=== PATIENT | female | born 1970 | race Caucasian/White ===

== ENCOUNTER 2022-01-06 06:59 | Emergency (ER) | payer BC ==
[2022-01-06] MEDS ORDERED: Ondansetron 4 MG/2 ML SDV IVPUSH ONE (08:09)
[2022-01-06] MEDS ORDERED: Sodium Chloride 0.9% 1,000 ML IV ONE (08:09)
[2022-01-06] MEDS ORDERED: Alum Hydroxide/Mag Hydroxide 15 ML, Lidocaine 2% 15 ML PO ONE ×2 (08:27)
[2022-01-06 08:37] LABS: ESTIMATED GFR > 60 (>60)
== END 2022-01-06 10:30 | disposition home or self-care (01) ==
LOC: FB.ED 06:59
DX: K52.9 Noninfective gastroenteritis and colitis, unspecified (principal)
CPT/HCPCS: 80053; 81001; 85025; 86140; 96374; 99284; A9270; J2405; J7030; 99282

== ENCOUNTER 2023-12-21 14:52 | Emergency (ER) | payer BC ==
[2023-12-21] MEDS ORDERED: Sodium Chloride 0.9% 10 ML Syringe FLUSH PRN (14:56)
[2023-12-21 15:16] LABS: BASOPHILS PERCENT AUTO 1.1 % (0.2-1.5); EOSINOPHILS ABSOLUTE AUTO 0.1 x10-3/uL (0.0-0.8); HEMATOCRIT 22.8 % (34.2-48.2); HEMOGLOBIN 7.1 g/dL (11.4-15.5); LYMPHOCYTES PERCENT AUTO 24.6 % (18.4-52.1); MEAN CORPUSCULAR HEMOGLOBIN 22.1 pg (23.9-33.9); MEAN CORPUSCULAR HGB CONC 31.2 g/dL (31.9-34.8); MEAN CORPUSCULAR VOLUME 70.8 fL (76.7-100.5); MONOCYTES ABSOLUTE AUTO 0.4 x10-3/uL (0.3-1.0); MONOCYTES PERCENT AUTO 8.8 % (4.4-15.7); NEUTROPHILS ABSOLUTE AUTO 2.5 x10-3/uL (1.5-6.3); NEUTROPHILS PERCENT AUTO 62.5 % (30.8-76.2); PLATELET COUNT,PLT 339 x10(3)uL (151-488); RED CELL DISTRIBUTION WIDTH 19.5 % (12.3-16.5); WHITE BLOOD CELL COUNT,WBC 4.1 x10-3/uL (3.0-10.3)
[2023-12-21] MEDS: Ondansetron 4 MG Tab.DIS PO STA (15:17)
[2023-12-21 15:18] LABS: BLOOD UREA NITROGEN,BUN 10 mg/dL (7-18); CALCIUM 8.7 mg/dL (8.6-10.2); CARBON DIOXIDE,CO2 24 mmol/L (21-32); CHLORIDE,CL 104 mmol/L (100-110); ESTIMATED GFR 68 mL/min (>60); GLUCOSE RANDOM 140 mg/dL (80-116); POTASSIUM,K 3.3 mmol/L (3.5-5.3); SODIUM,NA 139 mmol/L (135-145)
[2023-12-21 15:22] LABS: INR 0.87 (1.00-1.24)
[2023-12-21 15:24] LABS: A/G RATIO 0.8; ALANINE AMINOTRANSFERASE,ALT 23 U/L (12-36); ALBUMIN 3.1 g/dL (3.5-5.2); ALKALINE PHOSPHATASE 61 IU/L (56-112); ASPARTATE AMNIOTRANSFERASE,AST 16 IU/L (5-25); BILIRUBIN TOTAL 0.2 mg/dL (0.1-1.3)
[2023-12-21 15:25] LABS: PROTHROMBIN TIME 9.2 sec (9.0-11.1); PTT,PARTIAL THROMBOPLSTIN TIME 21.6 SECONDS (24.4-33.2); RED BLOOD CELL COUNT 3.21 x10(6)uL (3.60-5.20)
[2023-12-21 15:31] LABS: PRO B-TYPE NATRIUR PEPT,BNPPRO 56 pg/mL (<=125)
[2023-12-21 15:32] LABS: TROPONIN I < 4.0 pg/mL (4.0-60.3)
[2023-12-21] MEDS: LORazepam 2 MG/ML SDV IVPUSH STA (16:06)
[2023-12-21] MEDS: Sodium Chloride 0.9% 250 ML IV SCH (16:40)
[2023-12-21] MEDS ORDERED: Potassium Chloride 20 MEQ Tab.ER ONE (22:16)
[2023-12-21] MEDS: Potassium Chloride 20 MEQ Tab.ER PO ONE (22:17)
== END 2023-12-21 22:26 | disposition home or self-care (01) ==
LOC: FB.ED 14:52
DX: N93.8 Other specified abnormal uterine and vaginal bleeding (principal); D64.9 Anemia, unspecified
CPT/HCPCS: 36415; 36430; 71045; 80053; 83880; 84484; 85025; 85610; 85730; 86850; 86900; 86901; 86920; 86922; 93005; 93010; 99283; 99285; A9270-GY; J7050; P9016; Q0162